=== PATIENT | female | born 1940 | race Caucasian/White ===

== ENCOUNTER → 2018-06-19 | Outpatient (CLI) | payer OTHER | LOC: FIMAGING 14:28 | PROVIDERS: ATTEND Nurse Practitioner Family | DX: S00.91XA Abrasion of unspecified part of head, initial encounter (principal); S09.90XA Unspecified injury of head, initial encounter ==

== ENCOUNTER 2018-06-21 18:16 | Emergency (ER) | payer OTHER ==
--- NOTE | 2018-06-21 18:31 | EDPHY ---
H & P Stated Complaint: fall/DEVELOPED NEW NAUSEA/VOMITING Time Seen by Provider: 06/21/18 18:31 HPI/ROS: HPI CHIEF COMPLAINT: Worsening frontal headache, nausea, vomiting HISTORY OF PRESENT ILLNESS: This is a very pleasant 77-year-old female she is not on any anticoagulation, she presents emergency room with worsening frontal headache and vomiting 1 time this evening. She struck her head on Thursday she tripped and fell and hit her head on the sidewalk. She since then she has been having some lightheadedness tonight she vomited 1 time. She denies any chest pain or shortness of breath. Denies any neck pain, denies fever. She decided return emergency room due to the 1 episode of vomiting. Worsening frontal headache. Past Medical History: Denies significant medical Past Surgical History: Denies significant surgical history Social History: Denies drugs alcohol tobacco Family History: Noncontributory ROS REVIEW OF SYSTEMS: 10 Systems were reviewed and negative with the exception of the elements mentioned in the history of present illness. Exam Constitutional nontoxic no acute distress triage nursing summary reviewed, vital signs reviewed, awake/alert. Eyes normal conjunctivae and sclera, EOMI, PERRLA. HENT head/neck atraumatic except forehead hematoma and abrasions and ecchymosis around both orbits, moist mucus membranes, no epistaxis, neck supple / no meningismus, no raccoon eyes. Respiratory clear to auscultation bilaterally, normal breath sounds, no respiratory distress, no wheezing. Cardiovascular rate normal, regular rhythm, no murmur, no edema, distal pulses normal. Gastrointestinal soft, non-tender, no rebound, no guarding, normal bowel sounds, no distension, no pulsatile mass. Genitourinary no CVA tenderness. Musculoskeletal no midline vertebral tenderness, full range of motion, no calf swelling, no tenderness of extremities, no meningismus, good pulses, neurovascularly intact. Skin pink, warm, & dry, no rash, skin atraumatic. Neurologic awake, alert and oriented x 3, AAOx3, moves all 4 extremities equally, motor intact, sensory intact, CN II-XII intact, normal cerebellar, normal vision, normal speech. Psychiatric normal mood/affect. Heme/Lymph/Immune no lymphadenopathy. Differential Diagnosis: Includes but is not limited to in a particular order closed-head injury, intracranial bleed, skull fracture, subdural, epidural, concussion, closed head injury Medical Decision Making: Plan for this patient due to the vomiting and nausea worsening headache will repeat her CT scan to make sure she does have a delayed bleed subdural epidural, the well hydrated with IV fluids, Zofran 4 mg, basic blood work, and re-evaluate. Re-evaluation: CT scan head without contrast called to me by Dr. Hope, negative for acute traumatic injury negative for bleed. Stable from previous CT scan. 1926: Patient re-evaluated this time resting comfortably no acute distress. Not vomiting normal neurological exam. CT scan head without contrast is negative for acute bleed. Patient feels comfortable going home. Blood work and electrolytes appropriate. Recommend follow-up with concussion specialist as needed Return precautions discussed. Source: Patient - Personal History Current Tetanus Diphtheria and Acellular Pertussis (TDAP): Yes - Medical/Surgical History Hx Asthma: No Hx Chronic Respiratory Disease: No Hx Diabetes: No Hx Cardiac Disease: No Hx Renal Disease: No Hx Cirrhosis: No Hx Alcoholism: No Hx HIV/AIDS: No Hx Splenectomy or Spleen Trauma: No Other PMH: CML - Social History Smoking Status: Never smoked Constitutional: Initial Vital Signs Temperature (C) 36.9 C 06/21/18 18:20 Heart Rate 73 06/21/18 18:20 Respiratory Rate 18 06/21/18 18:20 Blood Pressure 151/74 H 06/21/18 18:20 O2 Sat (%) 96 06/21/18 18:20 O2 Delivery Mode Room Air Allergies/Adverse Reactions: No Known Allergies Allergy (Unverified 06/21/18 18:20) Home Medications: Medication Instructions Recorded Gleevec 100 mg (*) 06/21/18 Vitamin D3 06/21/18 Zantac 06/21/18 Medical Decision Making - Diagnostics Imaging Results: Imaging Impressions Head CT 06/21/18 18:41 Impression: 1. Frontal scalp (subgaleal) hematoma with diminished subcutaneous edema, compared to 06/19/2018. 2. Nondisplaced right nasal fracture. 3. There is no evidence of a skull fracture, or acute or subacute intracranial abnormality. If there is further clinical concern regarding the patient's symptoms, MR imaging is suggested, if not otherwise contraindicated. Findings were discussed with Issa Cohen MD at 19:05, on 06/21/2018. - Data Points Laboratory Results: Laboratory Results 06/21/18 18:58 06/21/18 18:58 06/21/18 06/21/18 18:58 18:58 WBC 6.18 10^3/uL 10^3/uL (3.80-9.50) RBC 3.80 10^6/uL L 10^6/uL (4.18-5.33) Hgb 11.6 g/dL L g/dL (12.6-16.3) Hct 35.6 % L % (38.0-47.0) MCV 93.7 fL fL (81.5-99.8) MCH 30.5 pg pg (27.9-34.1) MCHC 32.6 g/dL g/dL (32.4-36.7) RDW 13.6 % % (11.5-15.2) Plt Count 151 10^3/uL 10^3/uL (150-400) MPV 10.0 fL fL (8.7-11.7) Neut % (Auto) 63.5 % % (39.3-74.2) Lymph % (Auto) 22.7 % % (15.0-45.0) Towner % (Auto) 10.8 % % (4.5-13.0) Eos % (Auto) 2.3 % % (0.6-7.6) Baso % (Auto) 0.5 % % (0.3-1.7) Nucleat RBC Rel Count 0.0 % % (0.0-0.2) Absolute Neuts (auto) 3.93 10^3/uL 10^3/uL (1.70-6.50) Absolute Lymphs (auto) 1.40 10^3/uL 10^3/uL (1.00-3.00) Absolute Monos (auto) 0.67 10^3/uL 10^3/uL (0.30-0.80) Absolute Eos (auto) 0.14 10^3/uL 10^3/uL (0.03-0.40) Absolute Basos (auto) 0.03 10^3/uL 10^3/uL (0.02-0.10) Absolute Nucleated RBC 0.00 10^3/uL 10^3/uL (0-0.01) Immature Gran % 0.2 % % (0.0-1.1) Immature Gran # 0.01 10^3/uL 10^3/uL (0.00-0.10) Sodium 140 mEq/L mEq/L (135-145) Potassium 3.7 mEq/L mEq/L (3.3-5.0) Chloride 105 mEq/L mEq/L (97-110) Carbon Dioxide 25 mEq/l mEq/l (22-31) Anion Gap 10 mEq/L mEq/L (6-14) BUN 14 mg/dL mg/dL (7-23) Creatinine 0.8 mg/dL mg/dL (0.6-1.0) Estimated GFR > 60 Glucose 113 mg/dL H mg/dL (70-100) Calcium 9.5 mg/dL mg/dL (8.5-10.4) Medications Given: Discontinued Medications Sodium Chloride (Ns) 1,000 mls @ 0 mls/hr IV EDNOW ONE; Wide Open PRN Reason: Protocol Stop: 06/21/18 18:42 Last Admin: 06/21/18 18:56 Dose: 1,000 mls Ondansetron HCl (Zofran) 4 mg IVP EDNOW ONE Stop: 06/21/18 18:42 Last Admin: 06/21/18 18:57 Dose: 4 mg Departure - Departure Disposition: Home, Routine, Self-Care Clinical Impression: Concussion Qualifiers: Encounter type: initial encounter Loss of consciousness presence/duration: without LOC Qualified Code(s): S06.0X0A - Concussion without loss of consciousness, initial encounter Head injury Qualifiers: Encounter type: initial encounter Qualified Code(s): S09.90XA - Unspecified injury of head, initial encounter Condition: Good Instructions: Concussion (ED), Head Injury (ED) Additional Instructions: 1. Take it easy over the next week. 2. Lots of fluids and rest. 3. Follow-up concussion specialist if you continue have symptom 4. Return emergency room if you have severe headache, vomiting or not doing well. Referrals: DOUG BECKHAM [Other] - As per Instructions Yumi Montes MD [Medical Doctor] - As per Instructions
[2018-06-21] MEDS ORDERED: NS 1,000 ML IV ONE (18:41)
[2018-06-21] MEDS ORDERED: ONDANSETRON 4 MG/2 ML VIAL IVP ONE (18:41)
[2018-06-21 19:06] LABS: PLATELET COUNT 151 10^3/uL (150-400)
[2018-06-21 19:52] VITALS: BP 168/94
== END 2018-06-21 19:51 | disposition home or self-care (01) ==
DX: S06.0X0A Concussion without loss of consciousness, initial encounter (principal); S00.03XA Contusion of scalp, initial encounter; S02.2XXA Fracture of nasal bones, initial encounter for closed fracture; E86.9 Volume depletion, unspecified; W01.198A Fall on same level from slipping, tripping and stumbling with subsequent striking against other object, initial encounter; Y92.480 Sidewalk as the place of occurrence of the external cause
CPT/HCPCS: 70450; 96361; 96374; 99285; J2405